=== PATIENT | male | born 1960 | race American Indian/Alaskan Native ===

== ENCOUNTER 2018-03-01 14:05 | Emergency (ER) | payer SELFPAY ==
[2018-03-01] MEDS ORDERED: ALUM-MAG HYDROX-SIMETH 200-200-20MG/5ML PO ONE (15:50)
[2018-03-01] MEDS ORDERED: LIDOCAINE VISCOUS 2% PO ONE (15:50)
--- NOTE | 2018-03-01 16:32 | Emergency Department Report ---
ED General Adult HPI - General Chief complaint: Skin/Abscess/Foreign Body Stated complaint: THROAT DISCOMFORT Time Seen by Provider: 03/01/18 15:31 Source: patient, EMS Mode of arrival: Stretcher Limitations: No Limitations - History of Present Illness Initial comments: 7-year-old male who presents sublingually with his . She states that he was eating "small neck bones". He felt the sensation of foreign body in his neck. He had some brief choking. He was able to swallow there after but continued to have foreign body sensation. He never had any reading difficulty. The rise in the emergency department complaining of discomfort in his throat essentially mid cervical area. He is no distress. -: Gradual Location: neck Radiation: non-radiation Severity scale (0 -10): 0 Quality: aching Consistency: intermittent Improves with: none Worsens with: none Associated Symptoms: denies other symptoms Treatments Prior to Arrival: none - Related Data Allergies Allergy/AdvReac Type Severity Reaction Status Date / Time No Known Allergies Allergy Unverified 03/01/18 15:02 ED Review of Systems ROS: Stated complaint: THROAT DISCOMFORT Other details as noted in HPI Constitutional: denies: chills, fever Eyes: as per HPI. denies: eye pain, eye discharge, vision change ENT: denies: ear pain, throat pain Respiratory: denies: cough, shortness of breath, wheezing Cardiovascular: denies: chest pain, palpitations Endocrine: no symptoms reported Gastrointestinal: denies: abdominal pain, nausea, diarrhea Genitourinary: denies: urgency, dysuria Musculoskeletal: denies: back pain, joint swelling, arthralgia Skin: denies: rash, lesions Neurological: denies: headache, weakness, paresthesias Psychiatric: denies: anxiety, depression Hematological/Lymphatic: denies: easy bleeding, easy bruising ED Past Medical Hx - Past Medical History Previous Medical History?: No - Social History Smoking Status: Former Smoker Substance Use Type: Alcohol ED Physical Exam - General Limitations: No Limitations General appearance: alert, in no apparent distress - Head Head exam: Present: atraumatic, normocephalic - Eye Eye exam: Present: normal appearance - ENT ENT exam: Present: normal exam, normal orophraynx, mucous membranes moist, other (no difficulty with secretions) - Neck Neck exam: Present: normal inspection, other (no stridor). Absent: tenderness, meningismus - Respiratory Respiratory exam: Present: normal lung sounds bilaterally. Absent: respiratory distress - Cardiovascular Cardiovascular Exam: Present: regular rate, normal rhythm. Absent: systolic murmur, diastolic murmur, rubs, gallop - GI/Abdominal GI/Abdominal exam: Present: soft, normal bowel sounds. Absent: distended, tenderness, guarding, rebound - Rectal Rectal exam: Present: deferred - Extremities Exam Extremities exam: Present: normal inspection - Back Exam Back exam: Present: normal inspection - Neurological Exam Neurological exam: Present: alert, oriented X3, CN II-XII intact. Absent: motor sensory deficit - Psychiatric Psychiatric exam: Present: normal affect, normal mood - Skin Skin exam: Present: warm, dry, intact, normal color. Absent: rash ED Course Vital Signs 03/01/18 03/01/18 03/01/18 14:32 14:35 14:45 Temperature 98.7 F 98.7 F Pulse Rate 65 62 Respiratory 18 16 Rate Blood Pressure 160/85 152/86 Blood Pressure 152/86 [Left] O2 Sat by Pulse 99 96 97 Oximetry 03/01/18 15:00 Temperature Pulse Rate Respiratory Rate Blood Pressure 163/92 Blood Pressure [Left] O2 Sat by Pulse 98 Oximetry - Reevaluation(s) Reevaluation #1: Patient was given Maalox and viscous lidocaine with improvement of symptoms. He is appropriate for ENT follow-up. 03/01/18 16:32 Critical care attestation.: If time is entered above; I have spent that time in minutes in the direct care of this critically ill patient, excluding procedure time. ED Disposition Clinical Impression: Choking due to foreign body Qualifiers: Encounter type: initial encounter Qualified Code(s): T17.900A - Unspecified foreign body in respiratory tract, part unspecified causing asphyxiation, initial encounter Disposition: DC09 OP ADMIT IP TO THIS HOSP Is pt being admited?: No Does the pt Need Aspirin: No Condition: Stable Instructions: Foreign Body Ingestion (ED) Additional Instructions: See ENT referral any persistent symptoms. Return as needed. Referrals: SOY WINSLOW MD [Staff Physician] - 2-3 Days Time of Disposition: 16:33
[2018-03-01 16:54] VITALS: BP 163/77
--- NOTE | 2018-03-01 17:14 | XRay Report ---
FINAL REPORT EXAM: XR NECK SOFT TISSUE HISTORY: swallowed bone TECHNIQUE: 2 views of the neck with soft tissue technique PRIORS: None. FINDINGS: Soft tissue examination of the neck shows no unusual distention of the hypopharynx with normal vallec elsa and pyriform sinuses. There is no definite abnormality in the region of the epiglottis and aryepiglottic folds. No radiopaque foreign body is visualized after accounting for thyroid cartilage and hyoid bone. The a irway appears patent. The prevertebral soft tissues are normal. Slight degenerative change cervical spine. IMPRESSION: No radiographically visible acute pathology or radiopaque foreign body
== END 2018-03-01 16:45 | disposition home or self-care (01) ==
LOC: ED 14:05
DX: T17.900A Unspecified foreign body in respiratory tract, part unspecified causing asphyxiation, initial encounter (principal); Z87.891 Personal history of nicotine dependence
CPT/HCPCS: 70360; 99283